=== PATIENT | male | born 2005 | race Caucasian/White ===

== ENCOUNTER 2025-09-14 04:26 | Inpatient (IN) ==
--- NOTE | 2025-09-14 04:59 | Emergency Department Note ---
History of Present Illness General Chief complaint: Kidney Stone Stated complaint: KIDNEY STONE Time Seen by Provider: 09/14/25 04:47 History of Present Illness Maximum Pain Intensity: 8 This 20-year-old male presents ER complaining of ongoing left flank pain who has a known kidney stone. Patient tried Motrin. He did not want to take the narcotics. He also complains of nausea and vomiting. Patient denies chest pain, dyspnea, fevers or any other medical complaints. This is his first kidney stone. Home Medications Medication Instructions Recorded Confirmed Type desvenlafaxine succinate 50 mg 50 mg PO QAM 04/14/25 09/14/25 History tablet,extended release 24 hr Medical Marijuana 1 dose inhalation UD PRN Anxiety 05/27/25 09/14/25 History diphenhydramine HCl 25 mg tablet 10 mg PO QAM 05/27/25 09/14/25 History esomeprazole magnesium 20 mg 20 mg PO QAM 05/27/25 09/14/25 History capsule,delayed release cetirizine 10 mg tablet (Zyrtec) 10 mg PO DAILY PRN ALLERGIES 09/14/25 09/14/25 History Allergies Allergy/AdvReac Type Severity Reaction Status Date / Time No Known Allergies Allergy Verified 06/16/25 11:12 Past Med/Surg History Problem List Ureterolithiasis (Acute) Renal colic on left side (Acute) Hematuria (Acute) Hydronephrosis (Acute) Anemia (Acute) Urolithiasis (Acute) Hypertrophy of both inferior nasal turbinates Nasal congestion Adenotonsillar hypertrophy Medical History Encounter for pre-operative examination Nausea and vomiting after administration of anesthetic agent Hx of sleep apnea no devices "at this point, just diagnosed 02/2025 through a sleep study" Hx of gastroesophageal reflux (GERD) Anxiety Surgical History History of tonsillectomy Hx of wisdom tooth extraction History of surgery removal of breast tissue for gynecomastia Family History Other No pertinent family history Social History Smoking Status: Never smoker Tobacco Type: E-cigarettes / Vaping Second Hand Exposure: No; Do You Dip or Chew Tobacco: No; Hx Alcohol Use: Yes Alcohol type: beer, wine and hard liquor Hx Substance Use: No Preferred Language: Algerian Communication Ability: Effective Logistics Support Required: No Beliefs That Will Affect Care: None marital status: Single Current Living Situation: Family current occupational status: student Feels Safe at Home: Yes Safety Concerns: Feels Safe At This Time caffeine: Yes Gender Identity: Male Assistive Devices: None Review of Systems A total of 10 systems reviewed and were otherwise negative Physical Exam Vital Signs Vital Signs - 24 hr 09/14/25 04:40 09/14/25 06:24 09/14/25 06:29 Temperature 36.8 C Temperature Source Temporal Artery Scan Pulse Rate 70 57 L Pulse Rate [Finger] 51 L Respiratory Rate 16 18 Respiratory Effort / Characteristics Non-Labored Spontaneous Non-Labored Spontaneous Respiratory Depth Normal Normal Respiratory Pattern Regular Regular Blood Pressure 178/110 H Blood Pressure [Right Arm] 166/87 H Blood Pressure Mean 132 Blood Pressure Mean [Right Arm] 113 Blood Pressure Position [Right Arm] Lying Pulse Oximetry 97 94 Oxygen Delivery Method Room Air Room Air Sepsis Recent Fever Within 48 Hours No Sepsis New/Unexplained Change in Mental Status N/A Sepsis Action Taken by Nursing No Action Required VITALS: Vitals are noted on the nurse's note and reviewed by myself. Vital signs stable. GENERAL: White male who appears in pain, in no acute distress, nondiaphoretic, well-developed well-nourished. SKIN: Capillary reflex less than 2 seconds. HEENT: Normocephalic. PERRLA. EOMI. Nares patent. Mucous membranes moist. Neck is supple without nuchal rigidity. HEART: Regular rate and rhythm LUNGS: Clear to auscultation bilaterally without wheezes, rales or rhonchi. No retractions or accessory muscle use. ABDOMEN: Positive bowel sounds x 4. Normal tympanic percussion. Soft, nontender, without masses or organomegaly. Haque sign negative. No guarding or rebound tenderness. no CVA tenderness MUSCULOSKELETAL: No gross musculoskeletal defects. NEURO: Patient was alert and oriented to person place and time. No focal neurological deficits. Course Administered Medications Acetaminophen (Ofirmev) 1,000 mg in 100 mls @ 400 mls/hr IV Q8H PRN PRN Reason: Pain Stop: 09/17/25 07:18 Last Infusion: 09/14/25 18:27 Dose: Infused Documented By: roberta Admin: 09/14/25 18:10 Dose: 400 mls/hr Documented By: roberta Sodium Chloride (Nss) 1,000 mls @ 125 mls/hr IV .Q8H LENI Stop: 09/17/25 10:29 Last Admin: 09/14/25 18:41 Dose: 125 mls/hr Documented By: roberta Infusion: 09/14/25 18:32 Dose: Infused Documented By: roberta Admin: 09/14/25 10:55 Dose: 125 mls/hr Documented By: roberta Ketorolac Tromethamine (Ketorolac Tromethamine 15 Mg/Ml Vial) 15 mg IV Q6H PRN PRN Reason: Pain Stop: 09/19/25 07:18 Last Admin: 09/14/25 19:11 Dose: 15 mg Documented By: Admin: 09/14/25 12:24 Dose: 15 mg Documented By: roberta Miscellaneous (Desvenlafaxine Succinate 50 Mg Tablet ~ Order Awaiting Action) 1 each N/A QS [facility] Stop: 10/14/25 15:59 Last Admin: 09/14/25 17:02 Dose: Not Given Documented By: roberta Ondansetron HCl (Ondansetron Inj 2 Mg/Ml 2 Ml Vial) 4 mg IV Q6H PRN PRN Reason: Nausea And Vomiting Stop: 10/14/25 20:23 Last Admin: 09/14/25 20:40 Dose: 4 mg Documented By: KENA Pantoprazole Sodium (Pantoprazole 40 Mg Tab) 40 mg PO QAM LENI Stop: 10/14/25 10:29 Last Admin: 09/14/25 11:06 Dose: 40 mg Documented By: roberta Discontinued Medications Sodium Chloride (Nss) 500 mls @ 999 mls/hr IV .Q31M STA Stop: 09/14/25 05:17 Last Infusion: 09/14/25 06:10 Dose: Infused Documented By: Admin: 09/14/25 05:05 Dose: 999 mls/hr Documented By: Acetaminophen (Ofirmev) 1,000 mg in 100 mls @ 400 mls/hr IV NOW STA Stop: 09/14/25 06:24 Last Infusion: 09/14/25 06:43 Dose: Infused Documented By: Admin: 09/14/25 06:21 Dose: 400 mls/hr Documented By: Ketorolac Tromethamine (Ketorolac Tromethamine 15 Mg/Ml Vial) 10 mg IV NOW STA Stop: 09/14/25 04:48 Last Admin: 09/14/25 05:06 Dose: 10 mg Documented By: Morphine Sulfate (Morphine Sulfate 4 Mg/Ml 1 Ml Carp\\Vial) 4 mg IV NOW STA Stop: 09/14/25 06:11 Last Admin: 09/14/25 06:20 Dose: 4 mg Documented By: Ondansetron HCl (Ondansetron Inj 2 Mg/Ml 2 Ml Vial) 4 mg IV NOW STA Stop: 09/14/25 04:48 Last Admin: 09/14/25 05:06 Dose: 4 mg Documented By: Tamsulosin HCl (Tamsulosin Hcl 0.4 Mg Cap) 0.4 mg PO NOW ONE Stop: 09/14/25 04:48 Last Admin: 09/14/25 05:06 Dose: 0.4 mg Documented By: Medical Decision Making Medical Records Attestation: I reviewed the patient's medical records. Home Medications Current Medication List: was personally reviewed by me Laboratory Data Attestation: I reviewed the patient's lab results. 09/14/25 05:03 09/14/25 05:03 Lab Results 09/14/25 Range/Units 05:03 WBC 12.21 H (4.8-10.8) K/ul RBC 5.77 (4.70-6.10) M/uL Hgb 13.2 L (14.0-18.0) g/dL Hct 41.6 L (42.0-52.0) % MCV 72.1 L (80.0-100.0) fL MCH 22.9 L (25.0-34.0) pg MCHC 31.7 L (32.0-36.0) g/dL RDW Std Deviation 38.5 (36.4-46.3) fL RDW Coeff of Kevin 15.1 H (11.5-14.5) % Plt Count 299 (130-400) K/uL MPV 10.5 (9.4-12.4) fL Immature Gran % (Auto) 0.6 % Neut % (Auto) 80.6 % Lymph % (Auto) 12.0 % Hill % (Auto) 5.7 % Eos % (Auto) 0.6 % Baso % (Auto) 0.5 % Neut # (Auto) 9.85 H (1.40-6.50) K/uL Lymph # (Auto) 1.46 (1.20-3.40) K/uL Hill # (Auto) 0.70 H (0.11-0.59) K/uL Eos # (Auto) 0.07 (0.00-0.50) K/uL Baso # (Auto) 0.06 (0.00-0.20) K/uL Immature Gran # (Auto) 0.07 (0.01-0.20) K/uL Sodium 140 (136-145) mmol/L Potassium 3.6 (3.5-5.1) mmol/L Chloride 105 (98-107) mmol/L Carbon Dioxide 26 (21-32) mmol/L Anion Gap 9 (3-11) BUN 13 (6-23) mg/dl Creatinine 1.13 (0.6-1.4) mg/dl Est Cr Clr Drug Dosing 138.5 ml/min eGFR 94.25 BUN/Creatinine Ratio 11.5 (10-20) Glucose 131 H (70-99(Fasting)) mg/dl Calcium 9.1 (8.6-10.3) mg/dl Total Bilirubin 0.5 (0.2-1.0) mg/dl AST 12 L (13-39) U/L ALT 12 (7-52) U/L Alkaline Phosphatase 57 (34-104) U/L Total Protein 7.3 (6.0-8.3) gm/dl Albumin 4.4 (3.4-5.0) gm/dl Globulin 2.9 (2.5-4.0) gm/dl Albumin/Globulin Ratio 1.5 (0.9-2) Urine Color Yellow Urine Appearance Clear (Clear) Urine pH 5.5 (4.5-7.5) Ur Specific [place] 1.015 (1.000-1.030) Urine Protein Negative (Negative) Urine Glucose (UA) Negative (Negative) Urine Ketones Negative (Negative) Urine Blood 2+ H (Negative) Urine Nitrite Negative (Negative) Urine Bilirubin Negative (Negative) Urine Urobilinogen Negative (Negative) Ur Leukocyte Esterase Negative (Negative) Urine WBC (Auto) 0-5 (0-5) /hpf Urine RBC (Auto) >20 H (0-2) /hpf U Hyaline Cast (Auto) 0-2 (0-2) /lpf U Epithel Cells (Auto) 0-2 (0-2) /hpf Urine Bacteria (Auto) None Seen (None Seen) Urine Comment Imaging Data Attestation: I personally reviewed and interpreted this imaging study as follows: MDM Narrative Prior records/ancillary studies reviewed. Triage Nursing notes reviewed. Additional history obtained from nursing The patient's history was concerning for flank pain. Differential diagnosis: Etiologies such as renal colic, appendicitis, diverticulitis, mesenteric ischemia, aortic pathology, infections, inflammatory bowel disease, PUD, biliary pathology, UTI, as well as others were entertained. Physical examination findings: As above. ER treatment provided: Toradol Zofran and Flomax were ordered On reassessment the patient felt better. Diagnostic interpretation by me: The labs Independently Interpreted by myself revealed mild leukocytosis, mild anemia, stable per chart review. urinalysis revealed There was no sign of UTI. Mild hyperglycemia without DKA Imaging studies: CT from the other day was reviewed and read by radiology. Ultrasound was reviewed and read by radiology Consultation: A consultation was placed with the hospitalist. The case was discussed and diagnostics were reviewed. The patient was evaluated in the ER for further treatment. It appears that the patient has isolated renal colic from a left sided stone. No UTI. Stable labs. Patient states he was in too much pain to go home he is requesting admission. Medicine was consulted case discussed. He will be evaluated for possible admission. By the evaluation outlined above emergent etiologies such as appendicitis, diverticulitis, mesenteric ischemia, aortic pathology, infections, inflammatory bowel disease, PUD, biliary pathology, UTI, as well as others were deemed relatively unlikely. The pt informed about the findings as listed above. All questions were answered and pleased with the treatment. The chart was completed utilizing [employer] voice recognition software. Grammatical errors, random word insertions, pronoun errors, and incomplete sentences are an occassional consequence of this system due to software limitations, ambient noise, and hardware issues. Any formal questions or concerns about the content, text, or information contained within the body of this dictation should be directly addressed to the physician household assistant for clarification. Impression & Plan Renal colic on left side, Anemia, Hydronephrosis, Hematuria, Ureterolithiasis Discharge Plan Visit Data Chief Complaint: Kidney Stone Stated Complaint: KIDNEY STONE ED Provider: Jonah Edmonds ED Midlevel Provider: Lori Joshi Discharge Problem: Renal colic on left side, Anemia, Hydronephrosis, Hematuria, Ureterolithiasis Patient Disposition: Against Medical Advice Condition: Good Discharge Instructions Interventions: ED Discharge Assessment Last Done: 09/14/25 09:32
[2025-09-14] MEDS: SODIUM CHLORIDE 0.9% 500 ML IV STA (05:05)
[2025-09-14] MEDS: ONDANSETRON INJ 2 MG/ML 2 ML VIAL IV STA (05:06)
[2025-09-14] MEDS: TAMSULOSIN HCL 0.4 MG CAP PO ONE (05:06)
[2025-09-14] MEDS: KETOROLAC TROMETHAMINE 15 MG/ML VIAL IV STA (05:06)
[2025-09-14 05:30] LABS: Hematocrit (blood only) 41.6 % (42.0-52.0); Hemoglobin 13.2 g/dL (14.0-18.0); Immature Granulocytes # (auto) 0.07 K/uL (0.01-0.20); Immature Granulocytes % (auto) 0.6 %; Mean Corpuscular Hemoglobin 22.9 pg (25.0-34.0); Mean Corpuscular Volume 72.1 fL (80.0-100.0); Platelet Count 299 K/uL (130-400); RDW Standard Deviation 38.5 fL (36.4-46.3); Red Blood Count 5.77 M/uL (4.70-6.10); White Blood Count 12.21 K/ul (4.8-10.8)
[2025-09-14 05:34] LABS: Appearance Urine Clear (Clear); Bacteria Urine Automated None Seen (None Seen); Cast Urine Automated 0-2 /lpf (0-2); Epithelial Cell Urine Auto 0-2 /hpf (0-2); Glucose Urine UA Negative (Negative); RBC Urine Automated >20 /hpf (0-2); WBC Urine Automated 0-5 /hpf (0-5)
[2025-09-14 05:45] LABS: Alanine Aminotransferase 12.0 U/L (7-52); Albumin Globulin Ratio 1.5 (0.9-2); Albumin Level 4.4 gm/dl (3.4-5.0); Alkaline Phosphatase 57.0 U/L (34-104); Anion Gap 9.0 (3-11); Bilirubin,Total 0.5 mg/dl (0.2-1.0); Blood Urea Nitrogen 13.0 mg/dl (6-23); Calcium 9.1 mg/dl (8.6-10.3); Carbon Dioxide 26.0 mmol/L (21-32); Chloride 105.0 mmol/L (98-107); Creatinine Clr Calc Pharmacy 138.5 ml/min; Globulin 2.9 gm/dl (2.5-4.0); Glucose 131.0 mg/dl (70-99(Fasting)); Potassium 3.6 mmol/L (3.5-5.1); Sodium 140.0 mmol/L (136-145); Total Protein 7.3 gm/dl (6.0-8.3)
[2025-09-14] MEDS: MoRPHine SULFATE 4 MG/ML 1 ML CARP\\VIAL IV STA (06:20)
[2025-09-14] MEDS: ACETAMINOPHEN 1,000 MG/100 ML VIAL IV STA (06:21)
--- NOTE | 2025-09-14 08:51 | Ultrasound Report ---
EXAM: US renal/blad retro comp CLINICAL HISTORY: Left flank pain, known stone. Recent CT from 09/12/2025 with a left ureteral stone. TECHNIQUE: Ultrasound examination of the retroperitoneum was performed. Scanning was performed with the patient in the supine position. The following structures were specifically evaluated: COMPARISON: None available. FINDINGS: Right Kidney: The right kidney appears normal in size, measuring up to 11.2 cm, showing normal echotexture, echogenicity, position, vascularity, and preserved corticomedullary differentiation. An echogenic focus with faint posterior shadowing is detected at the midpole calyx of the right kidney ( unmeasured by the tech ), raising suspicion for a calculus. No evidence of hydronephrosis or renal cysts was detected in the provided images. Left Kidney: Left kidney appears normal in size, measuring up to 11.4 cm, showing normal echotexture, echogenicity, position, vascularity, and preserved corticomedullary differentiation. There is co-existent mild hydronephrosis and visualized proximal hydroureter noted(measuring up to 1.7 cm) in the provided images; cristyeve,r the distal left ureter and the obstructing ureteric calculus (as stated in the previous CT findings), cannot be commented upon in the current scan due to non-visualisation by overlying bowel gases and patient body habitus(according to the tech). Urinary bladder: The urinary bladder is suboptimally filled in the provided images, with visualization of only the right jet and not the left. Prevoid volume measures up to 123.1 ml. Postvoid volume measures up to 4.2 ml. (Insignificant). IMPRESSION: 1. Mild left-sided hydronephrosis and proximally visualized hydroureter, most likely due to an obstructing left ureteral stone (as stated in the previous CT findings); however cannot be exactly commented upon in the current scan due to non-visualization by overlying bowel gases. 2. Questionable right renal calculus ( unmeasured by the tech ). 3. Suboptimally filled urinary bladder in the provided images, with visualization of only the right jet and not the left(more likely due to left ureteric obstruction). 4. RECOMMENDATIONS: Clinical correlation with symptoms and further follow up by CT KUB as indicated. Electronically signed by Mark Walker 09-14-2025 08:51 AM
--- NOTE | 2025-09-14 09:06 | History & Physical Report ---
Date of Service September 14, 2025 Assessment & Plan (1) Renal colic on left side: Plan: nephrolithiasis with mild left hydronephrosis admit to medical consult urology placed on tamsulosin. Pain management with tylenol and NSAID as patient is refusing narcotics. WIll continue to monitor. NPO for possible stent placement. History of Present Illness Chief Complaint: Kidney pain Primary Care Provider: [facility] 20 yo male with 2 day history of left renal colic. Pain was sharp, located in left flank and now radiating to groin. Pain is intense and accompanied by nausea. Symptoms worsened yesterday which prompted patient to come to ED. Patient states his father has had history of recurrent kidney stones Allergies Allergy/AdvReac Type Severity Reaction Status Date / Time No Known Allergies Allergy Verified 06/16/25 11:12 Home Medications Medication Instructions Recorded Confirmed Type desvenlafaxine succinate 50 mg 50 mg PO QAM 04/14/25 09/14/25 History tablet,extended release 24 hr Medical Marijuana 1 dose inhalation UD PRN Anxiety 05/27/25 09/14/25 History diphenhydramine HCl 25 mg tablet 10 mg PO QAM 05/27/25 09/14/25 History esomeprazole magnesium 20 mg 20 mg PO QAM 05/27/25 09/14/25 History capsule,delayed release cetirizine 10 mg tablet (Zyrtec) 10 mg PO DAILY PRN ALLERGIES 09/14/25 09/14/25 History Past Med/Surg History Problem List Ureterolithiasis (Acute) Renal colic on left side (Acute) Hematuria (Acute) Hydronephrosis (Acute) Anemia (Acute) Urolithiasis (Acute) Hypertrophy of both inferior nasal turbinates Nasal congestion Adenotonsillar hypertrophy Medical History Encounter for pre-operative examination Nausea and vomiting after administration of anesthetic agent Hx of sleep apnea no devices "at this point, just diagnosed 02/2025 through a sleep study" Hx of gastroesophageal reflux (GERD) Anxiety Surgical History History of tonsillectomy Hx of wisdom tooth extraction History of surgery removal of breast tissue for gynecomastia Family History Other No pertinent family history Social History Smoking Status: Never smoker Tobacco Type: E-cigarettes / Vaping Second Hand Exposure: No; Do You Dip or Chew Tobacco: No; Hx Alcohol Use: Yes Alcohol type: beer, wine and hard liquor Hx Substance Use: No Preferred Language: Italian Communication Ability: Effective Print Finishing Worker Required: No Beliefs That Will Affect Care: None marital status: Single Current Living Situation: Family current occupational status: student Feels Safe at Home: Yes Safety Concerns: Feels Safe At This Time caffeine: Yes Gender Identity: Male Assistive Devices: None Review of Systems Constitutional: no fever and no body aches Eyes: no blind spots Ear, Nose, Mouth, Throat: no ear pain Respiratory: no cough Cardiovascular: no chest pain Gastrointestinal: no abdominal pain Genitourinary: no dysuria Musculoskeletal: no back pain Integumentary: no acne Neurologic: no gait abnormality Psychiatric: no behavioral changes Endocrine: no fatigue Hematologic / Lymphatic: no easy bleeding Allergy / Immunological: no GI upset with certain foods Physical Exam Constitutional: WD/WN, vitals as above ENMT: external ear and nose normal, oropharynx normal Neck: trachea midline, no thyromegaly Respiratory: normal respiratory effort, lungs clear to auscultation Cardiovascular: RRR, no murmur, no edema Gastrointestinal (Abdomen): normal bowel sounds, soft, nontender, no hepatosplenomegaly Psychiatric: A+Ox3, euthymic affect Results & Data Results & Data Vital Signs (Past 12 Hours) Vital Signs Temp Pulse Pulse Resp BP BP Pulse Ox 09/14/25 06:29 57 L 09/14/25 06:24 51 L 18 166/87 H 94 09/14/25 04:40 36.8 C 70 16 178/110 H 97 O2 Del Method 09/14/25 06:29 09/14/25 06:24 Room Air 09/14/25 04:40 Room Air PG Care Time/CCT Total # of Minutes Spent Total Time Spent with Patient: Total time spent is greater than 50% in coordination of care (as documented) at patient's floor/unit and/or counseling patient: Coding Level of Care Code 66350 INT INP/OBS CARE 3/75MIN Diagnoses Renal colic on left side N23
[2025-09-14] MEDS: SODIUM CHLORIDE 0.9% 1,000 ML IV SCH (10:55)
--- NOTE | 2025-09-14 11:06 | Urology Consultation ---
Date of Consultation September 14, 2025 Assessment & Plan (1) Ureterolithiasis: (2) Renal colic on left side: (3) Hematuria: (4) Hydronephrosis: Plan New patient with obstructing stone. Patient developed severe pain discomfort and bother which increased in severity last night. Patient had presented with severe pain possible stone. Patient has strong family history with father's had multiple stones. Has not seen blood in the urine. Has not had severe fever but was having chills and ill feelings. Patient independently assessed, examined, interviewed, and evaluated. Patient's vitals and labs were all reviewed. White count 12.21. Creatinine 1.13. Hemoglobin 13.2. Vitals are all stable with temperature 36.6. Blood pressure 132/65 pulse 58 respiration 16 oxygen saturation 97% on room air. Pertinent values in the HPI and plan section. Imaging was reviewed interpreted by myself. Agree with read. Vitals were reviewed. Discussed findings extensively with patient and family. Reviewed with nurse practitioner as well as consulting physicians/team. Patient's complicated medical and surgical history was reviewed and summarized above. Patient's surgical, medical, social, and family history were all reviewed with pertinent values as above. Discussed patient's current diagnosis as well as concerns and issues. Reviewed different options moving forward. Discussed potential risks and benefits as well as possible options and concerns. Reviewed potential surgical options and interventions. Discussed potential issues and concerns related to intervention. Risk and benefits were discussed extensively with patient and any available family. Discussed potential risks related to anesthesia. Discussed risks of bleeding infection and injury. Imaging was reviewed. Has obstructing stone in the proximal ureter on the left. Reviewed this extensively with patient. Has mild hydronephrosis. Patient not currently having severe episodes of pain at this time however has been having fairly severe issues. Did discuss extensively options for observation with spontaneous passage and maximal expulsion therapy. Versus moving forward with stent placement versus moving forward with stone treatment. Reviewed extensively risk and benefits of different options of procedure. Discussed options moving forward. Patient is interested in observing for now. Can monitor over the next few hours. If patient develops worsening pain or discomfort can consider moving forward with intervention otherwise we will plan to reevaluate tomorrow with attempt for spontaneous passage. History of Present Illness Attending Physician: Jim Serrano History of Present Illness New consultation for patient with stone, discomfort, obstruction, and ill feelings. Patient developed sudden onset of pain into flank going down and radiating into groin and back in waves comes and goes. Can be severe at times. Patient has having increasing issues over the last week. Had 1 episode earlier in the week. Had a more severe episode last night likely when the stone was crossing the proximal ureter. Patient does have strong family history. Father has had multiple stones. Patient himself has never had stone. Discussed and reviewed patient's family history for any history of stone disease. Also, discussed patient's medical surgery history especially related to any history of urinary issues or stone disease. Patient was admitted and is undergoing observation. Pain has slightly improved. Has not had major severe increase over the last few hours. Allergies Allergy/AdvReac Type Severity Reaction Status Date / Time No Known Allergies Allergy Verified 06/16/25 11:12 Home Medications Medication Instructions Recorded Confirmed Type desvenlafaxine succinate 50 mg 50 mg PO QAM 04/14/25 09/14/25 History tablet,extended release 24 hr Medical Marijuana 1 dose inhalation UD PRN Anxiety 05/27/25 09/14/25 History diphenhydramine HCl 25 mg tablet 10 mg PO QAM 05/27/25 09/14/25 History esomeprazole magnesium 20 mg 20 mg PO QAM 05/27/25 09/14/25 History capsule,delayed release cetirizine 10 mg tablet (Zyrtec) 10 mg PO DAILY PRN ALLERGIES 09/14/25 09/14/25 History Patient History Medical History Encounter for pre-operative examination Nausea and vomiting after administration of anesthetic agent Hx of sleep apnea no devices "at this point, just diagnosed 02/2025 through a sleep study" Hx of gastroesophageal reflux (GERD) Anxiety Surgical History History of tonsillectomy Hx of wisdom tooth extraction History of surgery removal of breast tissue for gynecomastia Family History Other No pertinent family history Social History Smoking Status: Never smoker Tobacco Type: E-cigarettes / Vaping Second Hand Exposure: No; Do You Dip or Chew Tobacco: No; Hx Alcohol Use: Yes Alcohol type: beer, wine and hard liquor Hx Substance Use: Yes (medical card) Last Used Substance Other:: daily basis Substance Use Type Other:: various forms Preferred Language: [place] Communication Ability: Effective Rail Splitter Required: No Beliefs That Will Affect Care: None marital status: Single Current Living Situation: Alone current occupational status: student Feels Safe at Home: Yes caffeine: Yes Gender Identity: Male Assistive Devices: None Review of Systems Review of Systems: All systems reviewed & are unremarkable except as noted in HPI & below Physical Exam Physical Exam: General: Alert and oriented x 3 in no acute distress. Patient is well nourished and well kept. HEENT: Normocephalic Atraumatic. Inspection normal. Cranial Nerves 2-12 Grossly intact. Nares are clear. Neck is supple. Normal inspection of face. Normal inspection of neck. Neurologic: No deficits on inspection. Baseline for motor function and sensory. Psychologic: Normal affect. Respiratory: Nonlabored. No use of accessory muscles. No tachypnea or dyspnea. Cardiovascular: No tachycardia Skin: [place] and Dry. No rashes or visible lesions. Extremities: Moving without issues. No motor deficits on inspection Lymphatics: No edema Abdomen: Soft Non-distended. No rebound or guarding. Results & Data Vital Signs (Past 12 Hours) Vital Signs Temp Pulse Pulse Resp BP BP Pulse Ox 09/14/25 10:01 36.6 C 58 L 16 132/65 97 09/14/25 09:32 54 L 20 166/84 H 94 09/14/25 06:29 57 L 09/14/25 06:24 51 L 18 166/87 H 94 09/14/25 04:40 36.8 C 70 16 178/110 H 97 O2 Del Method 09/14/25 10:01 Room Air 09/14/25 09:32 Room Air 09/14/25 06:29 09/14/25 06:24 Room Air 09/14/25 04:40 Room Air PG Care Time/CCT Total # of Minutes Spent Total Time Spent with Patient: Total time spent is greater than 50% in coordination of care (as documented) at patient's floor/unit and/or counseling patient: Coding Level of Care Code 20169 OFFICE CONSULT LVL /55M Diagnoses Ureterolithiasis N20.1 Renal colic on left side N23 Hematuria R31.9 Hydronephrosis N13.30
[2025-09-14] MEDS: KETOROLAC TROMETHAMINE 15 MG/ML VIAL IV PRN (12:24)
[2025-09-14] MEDS: ACETAMINOPHEN 1,000 MG/100 ML VIAL IV PRN (18:10)
[2025-09-14] MEDS: ONDANSETRON INJ 2 MG/ML 2 ML VIAL IV PRN (20:40)
[2025-09-14] MEDS ORDERED: HYDROmorphone INJ 0.5 MG/0.5 ML SYR IV PRN (22:05)
[2025-09-14] MEDS: HYDROmorphone INJ 0.5 MG/0.5 ML SYR IV PRN (22:16)
[2025-09-15 07:39] LABS: Hematocrit (blood only) 38.0 % (42.0-52.0); Hemoglobin 12.1 g/dL (14.0-18.0); Mean Corpuscular Hemoglobin 23.0 pg (25.0-34.0); Mean Corpuscular Volume 72.2 fL (80.0-100.0); Platelet Count 245 K/uL (130-400); RDW Standard Deviation 38.8 fL (36.4-46.3); Red Blood Count 5.26 M/uL (4.70-6.10); White Blood Count 10.14 K/ul (4.8-10.8)
[2025-09-15 07:56] LABS: Anion Gap 6.0 (3-11); Blood Urea Nitrogen 11.0 mg/dl (6-23); Calcium 8.9 mg/dl (8.6-10.3); Carbon Dioxide 28.0 mmol/L (21-32); Chloride 106.0 mmol/L (98-107); Creatinine Clr Calc Pharmacy 120.4 ml/min; Glucose 93.0 mg/dl (70-99(Fasting)); Potassium 4.2 mmol/L (3.5-5.1); Sodium 140.0 mmol/L (136-145)
[2025-09-15] MEDS: DESVENLAFAXINE SUCCINATE 50 MG ER TABLET PO SCH (08:27)
--- NOTE | 2025-09-15 08:39 | Urology Progress Note ---
Date of Service September 15, 2025 Assessment & Plan (1) Ureterolithiasis: (2) Renal colic on left side: (3) Hematuria: (4) Hydronephrosis: Plan Patient with obstructing left ureteral stone. Patient has never had stone before but does have a strong family history as his father has had multiple stones. Patient had increasing pain discomfort. Continues to have pain and bother. Additionally has been dealing with significant nausea. Has increased in intensity has not decreased or improved. Patient has not had major fevers or chills. Continues to have issues and bother with stone. Had discussed different options including possible treatment. Discussed options for stent. Discussed other alternatives. Risk and benefits were thoroughly reviewed. Discussed options for conservative measure and maximum expulsion medical therapy and symptom controlled. Discussed ESWL. Discussed Ureteroscopy with extraction and/or laser lithotripsy. Risks and benefits were discussed. Stone free rates were also discussed as well as possibility of multiple procedures. Ureteral stents were discussed as well as post-operative issues and pain management. All questions were answered. Risks and benefits discussed at length for procedure. These include bleeding, infection, injury to surrounding tissues or organs, and risks associated with anesthesia. Patient states understanding and agrees to proceed. Will sign consent and proceed. Plan for cystoscopy for possible left stone treatment. Admission and Anticipated Discharge Date Admission Date: September 14, 2025 Subjective Patient admitted with stone and discomfort. Patient is afebrile. Has been undergoing maximum expulsion therapy with oral medications, IV medications, IV fluids, and oral intake. Has not had significant improvement. Continues to have episodes of nausea and pain. Has not passed stone material or debris has not passed any blood. Continues to have issues with nausea but no development of severe vomiting or other issues. Has not experienced fever or chills. Has been tolerating oral medications. Was made n.p.o. at midnight. Is tolerating IV fluids. Has noticed some frequency and urgency. Has not had severe pain in the back and flank. Does have occasional burning and irritation. No severe episodes or cindi r changes. Patient does not believe the passed a stone. Has not passed a large amount of blood or debris that may be the stone. Review of Systems Review of Systems: All systems reviewed & are unremarkable except as noted in HPI & below Physical Exam Physical Exam: General: Alert in no acute distress. HEENT: Normocephalic Atraumatic. Inspection normal. Cranial Nerves 2-12 Grossly intact. Normal inspection of face. Normal inspection of neck. Psychologic: Normal affect. Respiratory: Nonlabored. No use of accessory muscles. No tachypnea or dyspnea. Cardiovascular: No tachycardia Skin: [place] and Dry. No rashes or visible lesions. Extremities/Lymphatics: No edema Abdomen: Soft Non-distended. No rebound or guarding. Results & Data Vital Signs (Past 12 Hours) Vital Signs Temp Pulse Resp BP BP Pulse Ox O2 Del Method 09/15/25 08:31 152/80 H 09/15/25 07:39 36.4 C L 51 L 18 195/83 H 186/97 H 95 Room Air 09/15/25 03:38 154/59 H 09/14/25 23:01 36.9 C 53 L 18 178/78 H 95 Room Air PG Care Time/CCT Total # of Minutes Spent Total Time Spent with Patient: Total time spent is greater than 50% in coordination of care (as documented) at patient's floor/unit and/or counseling patient: Coding Level of Care Code 87375 SUB INP/OBS CARE 3/50MIN Diagnoses Ureterolithiasis N20.1 Renal colic on left side N23 Hematuria R31.9 Hydronephrosis N13.30
[2025-09-15] MEDS ORDERED: MIDAZOLAM HCL 1 MG/ML 2ML VIAL ONE (09:49)
[2025-09-15] MEDS ORDERED: ONDANSETRON INJ 2 MG/ML 2 ML VIAL ONE (09:49)
[2025-09-15] MEDS ORDERED: DEXAMETHASONE SOD INJ 4 MG/ML VIAL ONE (09:49)
[2025-09-15] MEDS ORDERED: LIDOCAINE 2% 2 ML VIAL/AMP(20MG/ML) INFIL ONE (09:49)
[2025-09-15] MEDS ORDERED: PROPOFOL IV EMULSION 10 MG/ML 20 ML VIAL IV ONE (09:49)
--- NOTE | 2025-09-15 09:53 | Anesthesiology Consultation ---
Date of Service September 15, 2025 Assessment & Plan Chart Review Chart Review: Acceptable Risk for Surgery and Patient NOT seen in Pre Admission Testing Consults Requested none ASA ASA2 Proposed Anesthesia Anesthesia Type: General Risk / Benefits Reviewed With: PT / POA / Parent / Guardian, Accepts Plan and Informed Consent Obtained History Surgery Operation Date: 09/15/25 10:25 Proposed Procedures p Cystoscopy, Ureteronephroscopy, Laser Lithotripsy, Left Stent Placement - Hosea Valles, DO Height/Weight Height: 6 ft 1 in Weight: 118.9 kg Allergies Allergy/AdvReac Type Severity Reaction Status Date / Time No Known Allergies Allergy Verified 06/16/25 11:12 Medications Home Medications Medication Instructions Recorded Confirmed Last Taken desvenlafaxine succinate 50 mg 50 mg PO QAM 04/14/25 09/14/25 06/05/25 tablet,extended release 24 hr Medical Marijuana 1 dose inhalation UD PRN Anxiety 05/27/25 09/14/25 06/03/25 diphenhydramine HCl 25 mg tablet 10 mg PO QAM 05/27/25 09/14/25 Unknown esomeprazole magnesium 20 mg 20 mg PO QAM 05/27/25 09/14/25 06/05/25 capsule,delayed release cetirizine 10 mg tablet (Zyrtec) 10 mg PO DAILY PRN ALLERGIES 09/14/25 09/14/25 Unknown Active Medications Generic Name Dose Route Start Last Admin Trade Name Freq PRN Reason Stop Dose Admin Desvenlafaxine Succinate 1 tab 09/15/25 09:00 09/15/25 08:27 Desvenlafaxine Succinate 50 Mg Er Tablet PO 10/15/25 08:59 1 tab DAILY LENI Administration Hydromorphone HCl 0.5 mg 09/14/25 22:05 09/14/25 22:16 Hydromorphone Inj 0.5 Mg/0.5 Ml Syr IV 09/28/25 22:04 0.5 mg Q3H PRN Administration Pain (6,7,8,9,10) Acetaminophen 1,000 mg in 100 mls @ 400 mls/hr 09/14/25 07:19 09/15/25 08:03 Ofirmev IV 09/17/25 07:18 Infused Q8H PRN Infusion Pain Sodium Chloride 1,000 mls @ 125 mls/hr 09/14/25 10:30 09/15/25 09:38 Nss IV 09/17/25 10:29 125 mls/hr .Q8H LENI Administration Ketorolac Tromethamine 15 mg 09/14/25 07:19 09/15/25 03:28 Ketorolac Tromethamine 15 Mg/Ml Vial IV 09/19/25 07:18 15 mg Q6H PRN Administration Pain Ondansetron HCl 4 mg 09/14/25 20:24 09/15/25 03:04 Ondansetron Inj 2 Mg/Ml 2 Ml Vial IV 10/14/25 20:23 4 mg Q6H PRN Administration Nausea And Vomiting Pantoprazole Sodium 40 mg 09/14/25 10:30 09/15/25 08:27 Pantoprazole 40 Mg Tab PO 10/14/25 10:29 40 mg QAM LENI Administration Past Medical History Medical History Encounter for pre-operative examination Nausea and vomiting after administration of anesthetic agent Hx of sleep apnea no devices "at this point, just diagnosed 02/2025 through a sleep study" Hx of gastroesophageal reflux (GERD) Anxiety Past Family History Family History Other No pertinent family history Past Surgical History Surgical History History of tonsillectomy Hx of wisdom tooth extraction History of surgery removal of breast tissue for gynecomastia Social History Smoking Status: Never smoker Do You Dip or Chew Tobacco: No Hx Alcohol Use: Yes Alcohol type: beer, wine and hard liquor alcohol intake frequency: holidays/special occasions only Hx Substance Use: No substance use type: marijuana Substance Use Type Other:: various forms Last Used Substance Other:: daily basis Physical Exam Vital Signs Last Vital Signs Temp 36.4 C L 09/15/25 07:39 Pulse 51 L 09/15/25 07:39 Resp 18 09/15/25 07:39 BP 152/80 H 09/15/25 08:31 Pulse Ox 95 09/15/25 07:39 O2 Del Method Room Air 09/15/25 07:39 Testing Laboratory Results 09/15/25 06:58 09/15/25 06:58 Urine Color Yellow 09/14/25 05:03 Urine Appearance Clear (Clear) 09/14/25 05:03 Urine pH 5.5 (4.5-7.5) 09/14/25 05:03 Ur Specific [place] 1.015 (1.000-1.030) 09/14/25 05:03 Urine Protein Negative (Negative) 09/14/25 05:03 Urine Glucose (UA) Negative (Negative) 09/14/25 05:03 Urine Ketones Negative (Negative) 09/14/25 05:03 Urine Nitrite Negative (Negative) 09/14/25 05:03 Ur Leukocyte Esterase Negative (Negative) 09/14/25 05:03 Urine WBC (Auto) 0-5 /hpf (0-5) 09/14/25 05:03 Urine RBC (Auto) >20 /hpf (0-2) H 09/14/25 05:03 U Hyaline Cast (Auto) 0-2 /lpf (0-2) 09/14/25 05:03 U Epithel Cells (Auto) 0-2 /hpf (0-2) 09/14/25 05:03 Urine Bacteria (Auto) None Seen (None Seen) 09/14/25 05:03
[2025-09-15] MEDS ORDERED: ONDANSETRON INJ 2 MG/ML 2 ML VIAL IV PRN (10:15)
[2025-09-15] MEDS ORDERED: ATROPINE SULFATE 0.1 MG/ML 10ML SYR IV PRN (10:15)
[2025-09-15] MEDS: DIATRIZOATE MEGLUMINE 30% 100ML VIAL INSTIL ONE (11:05)
--- NOTE | 2025-09-15 11:20 | Operative Report ---
[facility] Post Operative Report Pre & Post Diagnosis Operation Date: 09/15/25 10:25 Pre-Op Diagnosis: (1) Left Ureterolithiasis: (2) Renal colic on left side: (3) Hematuria: (4) Left Hydronephrosis Post-Op Diagnosis: (1) Left Ureterolithiasis: (2) Renal colic on left side: (3) Hematuria: (4) Left Hydronephrosis I identified the patient and participated in the time-out.: Yes Procedure Operation Date: 09/15/25 10:25 Actual Procedures p Cystoscopy with Left Ureteronephroscopy, Left Retrograde Pyelogram, Left Stone basket extraction, Dilation of stricture, Laser Lithotripsy, Left Stent Placement(Left) - Hosea Valles DO Surgeon Hosea Valles, II, DO [employer] None Estimated Blood Loss 1 Findings Consistent with Post-Op Diagnosis Proximal ureteral stone destroyed to dust and small fragments and larger fragments removed. Small renal stones also destroyed. Stricture of the distal ureter. Specimens Stone Fragments Drains 6 Fr Multilength Anesthesia Type General Complications none Disposition Disposition: Recovery Room Indications Patient with bothersome stones. Risks and benefits discussed at length. Description of Procedure Patient was consented and brought back to the operating room. Patient was placed under anesthesia in the supine position and moved to the dorsal lithotomy position. Patient was prepped and draped in the regular sterile fashion. A time out was completed identifying the correct patient and procedure. A 30degree Cystoscope was placed into the bladder and the entire bladder was examined. The UO's were identified. The UO was cannulized with a catheter and a retrograde pyelogram was completed. A wire was then placed. A ureteral access sheath and second safety wire was placed. The flexible ureteroscope was taken into the ureter. A stricture in the distal ureter was discovered. This was dilated. The entire ureter and renal pelvis were examined. The stones were identified. A laser fiber was selected and the stones were pulverized to dust and small fragments. Larger fragments were grasped and removed and sent for analysis. The entire area was once again examined. No residual large fragments or areas of concern were noted. The scope was slowly removed with the wire left in place. Contrast was placed through the scope for a pyelogram to assist in stent placement. The entire ureter was examined as the scope was slowly removed. No obstructions or other areas of concern were noted. With the wire in place, a 6 Fr Double J stent was placed. It was confirmed with fluoroscopy. With the stent in place, the bladder was emptied. The scope was removed. The patient was cleaned, aroused from anesthesia, and transferred to the pacu in stable condition having tolerated the procedure well with no complications. I was present and participated in all aspects of the procedure. The patient will be monitored in the PACU until transferred. Will plan to remove stent in approximately 3 to 5 days. I attest to the content of the Intraoperative Record and any orders documented therein. Any exceptions are noted below.
--- NOTE | 2025-09-15 13:04 | Fluoroscopy Report ---
FL retrograde includes kub CLINICAL HISTORY: ADD ON RETROGRADE COMPARISON STUDY: None FLUOROSCOPY TIME: 103 seconds FLUOROSCOPY IMAGES: 7 EXPOSURE DOSE: 40 mGy FINDINGS: Fluoroscopy was provided for urologic procedure. IMPRESSION: Intraoperative fluoroscopy. ACT 112: Negative or not required by law. Electronically signed by: Mark Olivia M.D. 09/15/2025 1:03 PM
--- NOTE | 2025-09-15 13:06 | Anesthesiology Progress Note ---
Date of Service September 15, 2025 Anesthesia Post Procedure Vital Signs Vital Signs: Temp Pulse Pulse Resp BP BP Pulse Ox 09/15/25 12:20 36.7 C 52 L 16 162/75 H 98 09/15/25 12:15 58 L 16 145/83 H 100 09/15/25 12:02 50 L 23 143/65 H 100 09/15/25 11:55 36.5 C 47 L 21 133/66 100 09/15/25 11:45 52 L 19 142/62 H 95 09/15/25 11:35 55 L 20 131/58 L 98 09/15/25 11:29 36.0 C L 56 L 20 128/51 L 96 09/15/25 09:55 36.8 C 73 18 155/74 H 94 09/15/25 08:31 152/80 H 09/15/25 07:39 36.4 C L 51 L 18 195/83 H 186/97 H 95 09/15/25 03:38 154/59 H 09/14/25 23:01 36.9 C 53 L 18 178/78 H 95 09/14/25 15:20 36.4 C L 78 16 132/78 97 09/14/25 14:59 36.7 C 64 18 142/72 H 95 O2 Del Method O2 Flow Rate 09/15/25 12:20 Nasal Cannula 2 09/15/25 12:15 Nasal Cannula 2 09/15/25 12:02 Nasal Cannula 2 09/15/25 11:55 Nasal Cannula 2 09/15/25 11:45 Room Air 09/15/25 11:35 Room Air 09/15/25 11:29 Oxymask 9 09/15/25 09:55 Room Air 09/15/25 08:31 09/15/25 07:39 Room Air 09/15/25 03:38 09/14/25 23:01 Room Air 09/14/25 15:20 Room Air 09/14/25 14:59 Room Air Pain Intensity Left Flank: Pain Intensity: 5 Transfer of Care Handoff Completed per policy Notes Mental Status: alert / awake / arousable Patient Amnestic to Procedure: Yes Nausea / Vomiting: adequately controlled Pain: adequately controlled Airway Patency, RR, SpO2: stable & adequate BP & HR: stable & adequate Hydration State: stable & adequate Anesthetic Complications: no major complications apparent
[2025-09-15 13:36] VITALS: O2SAT 95
[2025-09-15 14:14] VITALS: RESP 18; TEMP 98.8
[2025-09-15 15:29] VITALS: BP 158/94; PULSE 58
[2025-09-15] MEDS: PHENAZOPYRIDINE HCL 200 MG TAB PO SCH (16:03)
== END 2025-09-15 17:12 | disposition home or self-care (01) | DRG 694 ==
LOC: SUATTDRO → ED 04:26 → 3W 07:12